=== PATIENT | male | born 1995 | race Caucasian/White ===

== ENCOUNTER 2017-04-25 13:32 | Emergency (ER) | payer MEDICAID ==
[~2017-04-25] VITALS: Ht 175.3 cm; Wt 106.6 kg
--- NOTE | 2017-04-25 17:01 | NUR ---
PT NATHAN. DR GREENE NOTIFIED. VISION THERAPIST GRACE NOTIFIED.
== END 2017-04-25 17:03 | disposition left against medical advice (07) ==
LOC: ER 13:32
DX: Z53.21 Procedure and treatment not carried out due to patient leaving prior to being seen by health care provider (principal)